=== PATIENT | female | born 1995 | race American Indian/Alaskan Native ===

== ENCOUNTER 2016-07-31 08:30 | Observation (INO) | payer OTHER ==
[2016-07-31 09:20] LABS: Hemoglobin 13.8 gm/dl (10.1-14.3); Mean Corpuscular HGB Conc 33 % (30-34); Mean Corpuscular Hemoglobin 28 pg (28-32); Mean Corpuscular Volume 87 fl (79-97); Platelet Count 206 K/mm3 (140-440); Red Blood Count 4.85 M/mm3 (3.65-5.03); Red Cell Distribution Width 13.1 % (13.2-15.2); White Blood Count 6.4 K/mm3 (4.5-11.0)
[2016-07-31 09:27] LABS: Eosinophils % (Auto) 2.4 % (0.0-4.3)
[2016-07-31 09:39] LABS: Alanine Aminotransferase 14 units/L (7-56); Albumin/Globulin Ratio 1.1 %; Alkaline Phosphatase 75 units/L (35-129); Anion Gap 17 mmol/L; BUN/Creatinine Ratio 15.71; Bilirubin,Total 0.9 mg/dL (0.1-1.2); Blood Urea Nitrogen 11 mg/dL (7-17); Calcium 9.2 mg/dL (8.4-10.2); Carbon Dioxide 21 mmol/L (22-30); Chloride 103.4 mmol/L (98-107); Glucose 96 mg/dL (65-100); Lipase 14 units/L (13-60); Potassium 3.8 mmol/L (3.6-5.0); Sodium 138 mmol/L (137-145); Total Protein 7.8 g/dL (6.3-8.2)
[2016-07-31 09:52] LABS: Bilirubin,Urine NEG (Negative); Blood,Urine LG (Negative); Ketones,Urine TR mg/dL (Negative); Leukocyte Esterase,Urine NEG (Negative); Mucus,Urine 3+ /HPF; Nitrite,Urine NEG (Negative)
[2016-07-31 09:54] LABS: RBC,Urine > 182.0 /HPF (0.0-6.0)
[2016-07-31 09:55] LABS: Basophils % (Manual) 0 % (0.0-1.8); Blastocytes % (Manual) 0 %
[2016-07-31 09:56] LABS: Diff Status Complete; RBC Morphology Normal
[2016-07-31] MEDS ORDERED: TORADOL IM ONE (11:34)
--- NOTE | 2016-07-31 11:43 | Emergency Department Report ---
ED Abdominal Pain HPI - General Chief Complaint: Abdominal Pain Stated Complaint: ABD/PELVIC/BACK PAIN Time Seen by Provider: 07/31/16 11:21 Source: patient Mode of arrival: Ambulatory Limitations: No Limitations - History of Present Illness Initial Comments: 20-year-old female presents to the emergency department complaining of right flank pain and vaginal bleeding. Patient states she has been having vaginal bleeding for the past 9 days. She states that she is taking oral control pills. She denies vaginal discharge, dysuria, or urinary frequency. Flank pain began 3 days ago. Pain is steadily getting worse. She describes constant , sharp, and aching pain that radiates from her right lower quadrant to her right flank. Patient states she has had similar pain in the past leading to an ovarian cyst. She denies fever. She does report nausea and some vomiting. There are no other complaints. MD Complaint: abdominal pain, flank pain -: Gradual, days(s) (3) Location: RLQ Radiation: R flank Migration to: no migration Severity: moderate Severity scale (0 -10): 6 Quality: aching, sharp Consistency: constant Improves With: nothing Worsens With: nothing Associated Symptoms: nausea, vomiting - Related Data Previous Rx's Medication Instructions Recorded Last Taken Type Albuterol Sulfate [Ventolin HFA] 2 puff IH Q4H PRN #1 [email or web address] 01/04/16 Unknown Rx Allergies Allergy/AdvReac Type Severity Reaction Status Date / Time No Known Allergies Allergy Verified 07/31/16 08:47 ED Review of Systems ROS: Stated complaint: ABD/PELVIC/BACK PAIN Other details as noted in HPI Comment: All other systems reviewed and negative Gastrointestinal: abdominal pain, nausea, vomiting Genitourinary: abnormal menses ED Past Medical Hx - Past Medical History Previous Medical History?: Yes Hx Asthma: Yes Additional medical history: Ovarian cysts - Surgical History Past Surgical History?: No - Family History Family history: no significant - Social History Smoking Status: Never Smoker Substance Use Type: None - Medications Home Medications: Home Medications Medication Instructions Recorded Confirmed Last Taken Type Albuterol Sulfate [Ventolin HFA] 2 puff IH Q4H PRN #1 [email or web address] 01/04/16 Unknown Rx ED Physical Exam - General Limitations: No Limitations General appearance: alert, in no apparent distress - Head Head exam: Present: atraumatic, normocephalic - Eye Eye exam: Present: normal appearance, PERRL, EOMI - ENT ENT exam: Present: normal exam, normal orophraynx, mucous membranes moist - Neck Neck exam: Present: normal inspection, full ROM. Absent: tenderness - Respiratory Respiratory exam: Present: normal lung sounds bilaterally. Absent: respiratory distress - Cardiovascular Cardiovascular Exam: Present: regular rate, normal rhythm, normal heart sounds - GI/Abdominal GI/Abdominal exam: Present: soft, tenderness (mild right lower quadrant tenderness to palpation), normal bowel sounds. Absent: distended, guarding, rebound - Extremities Exam Extremities exam: Present: normal inspection, full ROM. Absent: tenderness - Back Exam Back exam: Present: normal inspection, full ROM. Absent: tenderness, CVA tenderness (R), CVA tenderness (L) - Neurological Exam Neurological exam: Present: alert, oriented X3. Absent: motor sensory deficit - Skin Skin exam: Present: warm, dry, intact ED Course Vital Signs 07/31/16 07/31/16 08:40 11:40 Temperature 98.3 F 98.4 F Pulse Rate 72 58 L Respiratory 17 20 Rate Blood Pressure 148/97 Blood Pressure 131/86 [Right] O2 Sat by Pulse 100 100 Oximetry ED Medical Decision Making - Lab Data Result diagrams: 07/31/16 09:06 07/31/16 09:06 - Radiology Data Radiology results: report reviewed CT of the abdomen and pelvis shows early acute appendicitis. - Medical Decision Making Lab and imaging results reviewed and discussed with the patient. I have spoken with Dr. Nobles, surgery. Patient is being given IV Zosyn. Patient is being kept nothing by mouth. He will see the patient in the emergency department. - Differential Diagnosis abdominal pain, kidney stone, ovarian cyst, DUB, Critical care attestation.: If time is entered above; I have spent that time in minutes in the direct care of this critically ill patient, excluding procedure time. ED Disposition Clinical Impression: Acute appendicitis Qualifiers: Acute appendicitis type: with localized peritonitis Qualified Code(s): K35.3 - Acute appendicitis with localized peritonitis Disposition: OP ADMITTED IP TO THIS HOSP Is pt being admited?: Yes Condition: Stable Instructions: Abdominal Pain (ED) Referrals: PRIMARY CARE, [Primary Care Provider] - 3-5 Days Time of Disposition: 12:22
--- NOTE | 2016-07-31 12:10 | Cat Scan Report ---
CT OF THE ABDOMEN AND PELVIS WITHOUT CONTRAST HISTORY: Right flank pain. TECHNIQUE: Helical CT without contrast. Sagittal and coronal reformatted images. FINDINGS: No comparison. The distal tip of the appendix appears inflamed with wall thickening and measures up to 1 cm. The appendix is located in the presacral space to the right of midline. Within the limits of a noncontrast exam, the remaining abdominal and pelvic viscera are within normal limits. The liver, biliary system, pancreas, spleen, kidneys, adrenal glands and bladder are unremarkable. The bowel loops are normal caliber and wall thickness. The aorta is normal caliber. No ascites, bulky adenopathy or inflammatory changes. The lung bases are clear. Normal heart size. No suspicious bony lesion. IMPRESSION: Findings concerning for early acute appendicitis. These findings were discussed with Dr. Momin in the emergency department at 1203 hrs.
[2016-07-31] MEDS ORDERED: NACL 0.9% 1000 ML 1,000 ML IV ONE (12:17)
[2016-07-31] MEDS ORDERED: MORPHINE IV ONE (12:17)
[2016-07-31] MEDS ORDERED: ZOSYN/NS 4.5GM/100ML 4.5 GM/100 ML VIAL IV ONE (12:17)
--- NOTE | 2016-07-31 13:04 | Admit Criteria Form ---
Admission Criteria Documentation: ABDOMINAL PAIN Clinical Indications for Admission to Inpatient Care (Place 'X' for any and all applicable criteria): Admission is indicated for ANY ONE of the following(1)(2)(3)(4)(5): [X ]I. Inpatient admission required rather than observation care (Also use Abdominal Pain: Observation Care, as appropriate) because of ANY ONE of the following: [ ]a) Severe pain requiring acute inpatient management [X ]b) Identification of etiology/finding that requires inpatient care (eg, aortic dissection, free air) [ ]c) Absent bowel sounds with complete ileus(6) [ ]d) Suspected toxic megacolon [ ]e) Severe electrolyte abnormalities requiring inpatient care [ ]f) High fever or infection requiring inpatient admission as indicated by ANY ONE of following(7)(8): [ ] i) Appropriate outpatient or observational care antimicrobial treatment unavailable, not effective, or not feasible [ ] ii) Documented bacteremia [ ] iii) Temperature > 104.9 degrees F (oral) [ ] iv) T >103.1 F (oral) or < 96.8 F(rectal) that does not respond to all emergency treatment measures [ ]g) Signs of intestinal obstruction [B] [ ]h) Hemodynamic instability [ ]i) IV fluid to replace significant ongoing losses (greater than 3 L/m2 per day) (12)(13) [ ]j) Percutaneous or open drainage (eg, abscess, biliary tract ) procedures [ ]k) Parenteral nutrition regimen that must be implemented on inpatient basis [ ]l) Other condition,treatment or monitoring requiring inpatient admission. [ ]II. Peritoneal signs present [ ]III. Surgery needed that cannot be performed on an ambulatory basis. [ ]IV. Evaluation requires patient to not eat or drink for extended period ( eg, more than 24 hours). [ ]V. Contraindications and/or Inappropriate clinical situations for Observational Care in patients with abdominal pain, when ANY ONE of the following is required: [ ]a) Thorough evaluation is required to prevent catastrophic events due to delays in diagnosing (e.g.Mesenteric ischemia) 1,3 [ ]b) Patient with severe pathology or with chronic symptoms unlikely to improve in the ED stay (3) [ ]. General contraindications and/or Inappropriate clinical situations for Observational Care in patients with abdominal pain, when ANY ONE of the following is required: [ ]a) Prediction of prolongation of LOS based on ANY ONE of the following may be considered as a contraindication for observational care 2, 3, 4, 5, 6, 7, 8, 9, 10, 11 [ ]i) Age > 65 yrs. [ ]ii) Patient arriving by ambulance [ ]iii) Patient with high acuity [ ]iv) Patient requiring vital sign monitoring [ ]v) Patient on IV medication [ ]b) Systolic blood pressures 180mmHg 3,12 [ ]c) Patient with altered mental status including delirium and other alteration of consciousness, (3) [ ]d) Patient whose discharge disposition will be to a assisted home or rehabilitation home should not be managed in Emergency Department Observation Unit. CMS rule requires 3 days hospital stay before such placement.3,13 [ ]e) Patient with failure to thrive due to broad array of etiologies 3,16,17 [ ]f) Inability to ambulate 3,14 Extended stay beyond goal length of stay may be needed for(2)(3): [ ]a) Persistent abdominal pain with suspected intra-abdominal process [ ]b) Diagnosed condition requiring continued stay (e.g., pancreatitis, complicated diverticulitis) [ ]c) Surgery (e.g., colectomy) The original [facility] content created by [email or web address] has been revised. The portions of the content which have been revised are identified through the use of italic text or in bold, and [facility] has neither reviewed nor approved the modified material.All other unmodified content is copyright [facility]. Please see references footnoted in the original [facility] edition 2016 Admission Criteria Met: Yes
--- NOTE | 2016-07-31 14:44 | History and Physical Report ---
History of Present Illness Date of examination: 07/31/16 Date of admission: 07/31/16 Chief complaint: abd pain History of present illness: 20 year old female with 48-72 hour hx of abd pain, localized in RLQ, WBC normal , CT abd pelvis positive for acute appendicitis, reviewed with Dr. Okeefe ([facility]) Past History Past Surgical History: No surgical history Social history: no significant social history Medications and Allergies Allergies Allergy/AdvReac Type Severity Reaction Status Date / Time No Known Allergies Allergy Verified 07/31/16 08:47 Home Medications Medication Instructions Recorded Confirmed Last Taken Type Albuterol Sulfate [Ventolin HFA] 2 puff IH Q4H PRN #1 [email or web address] 01/04/16 Unknown Rx Exam Vital Signs Temp Pulse Resp BP Pulse Ox 98.3 F 72 17 148/97 100 07/31/16 08:40 07/31/16 08:40 07/31/16 08:40 07/31/16 08:40 07/31/16 08:40 - General physical appearance Positive: no distress - Eyes Positive: PERRL, normal occular movement - ENT Positive: normal pinna, normal nares, normal mucosa, no hearing loss, no congestion - Neck Positive: no masses, no bruits, trachea midline, no venous distension - Respiratory Positive: normal expansion, normal respiratory effort, clear to auscultation - Cardiovascular Rhythm: regular - Extremities Extremities: no ischemia, pulses symmetrical, No edema Peripheral Pulses: within normal limits - Breasts Breasts: normal - Abdomen Abdomen: Present: bowel sounds normal, other (tender to deep palpation RLQ, no rebound or guarding) Hernia: none - Neurologic Neurologic: alert and oriented to time, place and person, motor strength and sensation are grossly intact - Psychiatric Psychiatric: appropriate mood/affect, intact judgment & insight Results - Labs 07/31/16 09:06 07/31/16 09:06 Abnormal lab results 07/31/16 07/31/16 07/31/16 Range/Units 09:06 09:06 09:41 RDW 13.1 L (13.2-15.2) % [place] # 1.1 H (0.0-0.8) K/mm3 Lymphocytes % (Manual) 40.0 H (13.4-35.0) % Carbon Dioxide 21 L (22-30) mmol/L Ur Specific [place] 1.032 H (1.003-1.030) Urine WBC (Auto) 17.0 H (0.0-6.0) /HPF Diabetes panel 07/31/16 Range/Units 09:06 Sodium 138 (137-145) mmol/L Potassium 3.8 (3.6-5.0) mmol/L Chloride 103.4 (98-107) mmol/L Carbon Dioxide 21 L (22-30) mmol/L BUN 11 (7-17) mg/dL Creatinine 0.7 (0.7-1.2) mg/dL Glucose 96 (65-100) mg/dL Calcium 9.2 (8.4-10.2) mg/dL AST 16 (5-40) units/L ALT 14 (7-56) units/L Alkaline Phosphatase 75 (35-129) units/L Total Protein 7.8 (6.3-8.2) g/dL Albumin 4.0 (3.9-5) g/dL Calcium panel 07/31/16 Range/Units 09:06 Calcium 9.2 (8.4-10.2) mg/dL Albumin 4.0 (3.9-5) g/dL Pituitary panel 07/31/16 Range/Units 09:06 Sodium 138 (137-145) mmol/L Potassium 3.8 (3.6-5.0) mmol/L Chloride 103.4 (98-107) mmol/L Carbon Dioxide 21 L (22-30) mmol/L BUN 11 (7-17) mg/dL Creatinine 0.7 (0.7-1.2) mg/dL Glucose 96 (65-100) mg/dL Calcium 9.2 (8.4-10.2) mg/dL Adrenal panel 07/31/16 Range/Units 09:06 Sodium 138 (137-145) mmol/L Potassium 3.8 (3.6-5.0) mmol/L Chloride 103.4 (98-107) mmol/L Carbon Dioxide 21 L (22-30) mmol/L BUN 11 (7-17) mg/dL Creatinine 0.7 (0.7-1.2) mg/dL Glucose 96 (65-100) mg/dL Calcium 9.2 (8.4-10.2) mg/dL Total Bilirubin 0.9 (0.1-1.2) mg/dL AST 16 (5-40) units/L ALT 14 (7-56) units/L Alkaline Phosphatase 75 (35-129) units/L Total Protein 7.8 (6.3-8.2) g/dL Albumin 4.0 (3.9-5) g/dL Assessment and Plan Acute appendicitis-admit,NPO,IV antibiotics, iv fluids, lap appendectomy.
[2016-07-31] MEDS ORDERED: XYLOCAINE 1% 20 mL ONE (15:17)
[2016-07-31] MEDS ORDERED: MARCAINE 0.5% INFILTRATI ONE ×2 (15:18→16:40)
[2016-07-31] MEDS ORDERED: DIPRIVAN 10 MG/ML IV ONE (15:19)
[2016-07-31] MEDS ORDERED: DILAUDID ONE (15:20)
[2016-07-31] MEDS ORDERED: XYLOCAINE MPF 2% ONE (15:21)
[2016-07-31] MEDS ORDERED: ZOFRAN ONE (15:21)
[2016-07-31] MEDS ORDERED: ZEMURON IV ONE (15:21)
[2016-07-31] MEDS ORDERED: DECADRON ONE (15:21)
[2016-07-31] MEDS ORDERED: QUELICIN ONE (15:31)
--- NOTE | 2016-07-31 15:32 | Anesthesia Consultation ---
Anesthesia Consult and Med Hx Date of service: 07/31/16 - Airway Anesthetic Teeth Evaluation: Good ROM Head & Neck: Adequate Mental/Hyoid Distance: Adequate Mallampati Class: Class II Intubation Access Assessment: Probably Good - Pulmonary Exam CTA: Yes - Cardiac Exam Cardiac Exam: RRR - Pre-Operative Health Status ASA Pre-Surgery Classification: ASA2 Proposed Anesthetic Plan: General - Pulmonary Hx Asthma: Yes (exercise induced)
--- NOTE | 2016-07-31 15:33 | Anesthesia Day of Surgery ---
Anesthesia Day of Surgery - Day of Surgery Patient Examined: Yes Patient H&P Reviewed: Yes Patient is NPO: Yes (some recent nausea)
[2016-07-31] MEDS ORDERED: ZOFRAN IV PRN ×2 (15:34→17:19)
[2016-07-31] MEDS ORDERED: NACL 0.9% 1000 ML 1,000 ML ONE (15:46)
[2016-07-31] MEDS ORDERED: NACL 0.9% 1000 ML 1,000 ML IV SCH (16:00)
[2016-07-31] MEDS ORDERED: VERSED IV NR (16:00)
[2016-07-31] MEDS ORDERED: PEPCID IV NR (16:00)
[2016-07-31] MEDS: ZOFRAN IV NR ×2 (16:03→23:03)
[2016-07-31] MEDS ORDERED: NACL 0.9% IR ONE ×2 (16:40→16:41)
[2016-07-31] MEDS ORDERED: XYLOCAINE 1% 20 mL INFILTRATI ONE (16:40)
[2016-07-31] MEDS ORDERED: DULCOLAX PR PRN (17:19)
[2016-07-31] MEDS ORDERED: TYLENOL PO PRN (17:19)
[2016-07-31] MEDS ORDERED: MILK OF MAGNESIA PO PRN (17:19)
--- NOTE | 2016-07-31 17:19 | Post Operative Note ---
Pre-op diagnosis: acute appendicitis Post-op diagnosis: same Findings: acute appendicitis Procedure: Laparoscopic appendectomy Anesthesia: GETA Surgeon: ELIESER NGUYEN Estimated blood loss: none Pathology: list (appendix) Condition: stable Disposition: floor
[2016-07-31] MEDS ORDERED: ROBINUL ONE ×2 (17:20)
[2016-07-31] MEDS ORDERED: NEOSTIGMINE ONE (17:20)
[2016-07-31] MEDS ORDERED: VERSED IV SCH (17:42)
[2016-07-31] MEDS ORDERED: D5/0.45NS 1,000 ML IV SCH (18:00)
[2016-07-31] MEDS: DILAUDID IV PRN ×4 (18:26→18:57)
--- NOTE | 2016-07-31 18:32 | Post Anesthesia Evaluation ---
- Post Anesthesia Evaluation Patient Participated: Yes Airway Patent: Yes Stable Respiratory Function: Yes Temp > 96.8F: Yes Pain Manageable: Yes Adequeate Hydration: Yes Anesthesia Complications: No Block Receding Appropriately: Not Applicable
--- NOTE | 2016-07-31 21:33 | Operative Report ---
PREOPERATIVE DIAGNOSIS: Acute appendicitis. POSTOPERATIVE DIAGNOSIS: Acute appendicitis. OPERATIVE FINDINGS: Compatible with acute appendicitis. No abscess. PROCEDURE: Laparoscopic appendectomy. ANESTHESIA: General. SURGEON: Marcin Nobles MD BLOOD LOSS: Essentially minimal. SPECIMEN: Consisted of resected appendix. CONDITION: Stable. DISPOSITION: The patient was sent to the floor. DESCRIPTION OF PROCEDURE: After informed consent, the patient received IV antibiotics. She was induced under general anesthesia with compression stockings in place. She was sterilely prepped and draped in a supine fashion with the left arm tucked. She was draped for standard laparoscopic appendectomy. Above the umbilicus to the right mid to upper quadrant lateral to the epigastrics, a skin wheal was raised with 0.5% Marcaine mixed with 1% lidocaine. Incision was made with 11 scalpel. A Veress needle was introduced, tested and found to be satisfactorily placed and intraabdominal cavity was insufflated to acceptable parameters with CO2. The Veress needle was removed and then under direct visualization with a 30-degree 5 mm camera, a 5 mm port was placed and another 5 mm port was placed in the left mid quadrant lateral to the epigastrics in a like fashion. A skin wheal was raised in the subumbilical area and then I made an incision with 11 scalpel. I carefully placed a 12 mm port under direct visualization. I dilated the tract with a Patricia and then passed easily with no resistance. The patient was then positioned properly. The operative findings were compatible with early acute appendicitis. Traction was placed on the apex of the appendix with Shaheen and Geck forceps. Utilizing the [place] retractor, I cleared away the mesoappendix from the base of the appendix flushed with the cecum. I fired an endoluminal stapler of vascular cartridge across the base of the mesoappendix and the base of the appendix flushed with the cecum. Then, I removed the appendix in a gallbladder bag. Then, I carefully examined the area of the staple line, used a [place] irrigation system until completely clear. I placed a 10 mm clip across the base of the appendiceal artery stump, but there was no significant bleeding at all. I washed out the abdomen just in the area where the appendix was and then I removed the ports under direct visualization with the scope. There was no bleeding from the anterior abdominal wall. I closed the 12 mm port site with UR-6 0 Vicryl and 4-0 Monocryl was used for the skin, 0.5% Marcaine and lidocaine was instilled in the incisions for pain control and Dermaflex was applied. JOB# [id number] MAYANK/ZARI
[2016-07-31] MEDS: ZOSYN/NS 4.5GM/100ML 4.5 GM/100 ML VIAL IV SCH (22:34)
[2016-08-01] MEDS: MORPHINE IV PRN ×3 (00:30→10:33)
[2016-08-01] MEDS: ZOSYN/NS 4.5GM/100ML 4.5 GM/100 ML VIAL IV SCH (05:37)
[2016-08-01 06:32] LABS: Basophils % (Auto) 0.2 % (0.0-1.8); Hematocrit 37.5 % (30.3-42.9); Hemoglobin 12.3 gm/dl (10.1-14.3); Mean Corpuscular HGB Conc 33 % (30-34); Mean Corpuscular Hemoglobin 29 pg (28-32); Mean Corpuscular Volume 87 fl (79-97); Red Blood Count 4.31 M/mm3 (3.65-5.03); Red Cell Distribution Width 12.7 % (13.2-15.2); White Blood Count 5.9 K/mm3 (4.5-11.0)
[2016-08-01 07:01] LABS: Platelet Count 167 K/mm3 (140-440)
[2016-08-01 09:08] VITALS: BP 114/72
[2016-08-01] MEDS ORDERED: PERCOCET 5/325 PO PRN (11:21)
--- NOTE | 2016-08-01 11:21 | Discharge Summary ---
Providers - Providers Date of Admission: 07/31/16 17:19 Date of discharge: 08/01/16 Attending physician: ELIESER NGUYEN Primary care physician: [facility] Hospitalization Reason for admission: acute appendicitis Condition: Good Pertinent studies: CT abd and pelvis Procedures: laparoscopic appendectomy Hospital course: Pt admitted, IV fluids and antibiotics, taken to OR for uneventful lap appendectomy , did well, sent home POD 1. Disposition: DISCHARGED TO HOME OR SELFCARE Time spent for discharge: 20min Core Measure Documentation - Palliative Care Palliative Care/ Comfort Measures: Not Applicable - Core Measures Any of the following diagnoses?: none Exam - Constitutional Vitals: Temp Pulse Resp BP Pulse Ox 98.5 F 74 18 114/72 100 08/01/16 08:00 08/01/16 08:00 08/01/16 08:00 08/01/16 08:00 08/01/16 08:00 General appearance: Present: no acute distress - EENT Eyes: Present: PERRL ENT: hearing intact, clear oral mucosa - Neck Neck: Present: supple, normal ROM - Respiratory Respiratory effort: normal - Cardiovascular Heart Sounds: Present: S1 & S2. Absent: rub, click - Extremities Extremities: no ischemia - Abdominal General gastrointestinal: Present: soft, non-distended (all incisions OK) - Psychiatric Psychiatric: appropriate mood/affect, intact judgment & insight Plan Weight Bearing Status: Full Weight Bearing Diet: regular Wound: open to air Follow up with: PRIMARY CARE, [Primary Care Provider] - 3-5 Days Prescriptions: oxyCODONE /ACETAMINOPHEN [Percocet 5/325 mg] 1 tab PO Q4H PRN #30 tablet PRN Reason: Pain, Moderate (4-6)
--- NOTE | 2016-08-01 19:44 | Discharge Summary ---
DISCHARGE DIAGNOSIS: Acute appendicitis. PROCEDURES: The patient underwent CT scan of the abdomen and pelvis and a laparoscopic appendectomy. HOSPITAL COURSE: This is a 20-year-old female presented with a 24-48-hour history of abdominal pain. Her white count was normal. She underwent a CT scan of the abdomen and pelvis demonstrated findings consistent with acute appendicitis. She was made n.p.o., received IV fluids and IV antibiotics, was taken to surgery, where she underwent an uneventful laparoscopic appendectomy. The operative findings were consistent with early acute appendicitis. No abscess. She was admitted to the hospital, advanced to clear liquids. By the first postoperative day, her white count was normal, her hemoglobin was rock stable at 12.3 with a normal platelet count. She was tolerating liquids with no nausea, vomiting. Her incisions were healing beautifully. She was instructed on wound care, and told not to lift anything more than 30 pounds for 2 weeks. I will see her in my office 1 week following discharge. She was given my business card with my office number to make an appointment for the next week. JOB# [id number] MAYANK/ZARI
== END 2016-08-01 14:25 | disposition home or self-care (01) ==
LOC: ED 08:30 → OR 15:57 → 2B-SURG 17:19
PROVIDERS: ADMIT Surgery; ATTEND Surgery
DX: K35.80 Unspecified acute appendicitis (principal)
CPT/HCPCS: 36415; 44970; 74176; 80053; 81001; 83690; 84703; 85007; 85025; 88302; 88304; 96365; 96372; 96375; 96376; 99285; A4217; G0378; J0330; J1100; J1170; J1885; J2250; J2270; J2405; J2543; J2704; J2710; J7030